=== PATIENT | female | born 2000 | race Caucasian/White ===

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

== ENCOUNTER 2024-02-24 12:54 | Emergency (ER) | payer OTHER ==
[2024-02-24 13:51] LABS: BASO % 0.5 % (0.0-1.0); EOS # 0.1 10^3/uL (0.0-0.5); EOS % 1.5 % (0.0-3.0); HEMATOCRIT 38.4 % (36.0-47.0); HEMOGLOBIN 12.8 g/dl (12.0-15.5); LYMPH # 1.9 10^3/uL (1.5-5.0); LYMPH % 22.6 % (24.0-44.0); MEAN CORPUSCULAR HGB CONC 33.3 g/dl (32.0-36.5); MEAN CORPUSCULAR VOLUME 90.1 fl (80.0-96.0); MONO # 0.6 10^3/uL (0.0-0.8); MONO % 6.7 % (2.0-8.0); NEUTROPHILS # 5.6 10^3/uL (1.5-8.5); NEUTROPHILS % 68.5 % (36.0-66.0); PLATELET COUNT, AUTOMATED 276 10^3/uL (150-450); RED BLOOD COUNT 4.26 10^6/uL (4.00-5.40); WHITE BLOOD COUNT 8.2 10^3/uL (4.0-10.0)
[2024-02-24 14:17] LABS: CK-MB VALUE MASS < 1.0 NG/ML (<3.6)
[2024-02-24 14:19] LABS: BLOOD UREA NITROGEN 13 MG/DL (9-23); CALCIUM LEVEL 9.9 MG/DL (8.5-10.1); CARBON DIOXIDE LEVEL 24 MMOL/L (20-31); CHLORIDE LEVEL 105 MMOL/L (98-107); CREATININE FOR GFR 0.67 MG/DL (0.55-1.30); GLOMERULAR FILTRATION RATE > 60.0 (>60); GLUCOSE, FASTING 82 MG/DL (60-100); POTASSIUM SERUM 4.6 MMOL/L (3.5-5.1); SODIUM LEVEL 138 MMOL/L (136-145)
[2024-02-24 14:20] LABS: CPK CREATINE PHOSPHOKINASE 61 U/L (34-145); HCG, SERUM QUALITATIVE NEGATIVE (NEGATIVE); MB/CK RELATIVE INDEX 1.63 (< OR =4)
[2024-02-24] MEDS ORDERED: ISOVUE-370 76% 100ML VIAL As Ordered ONE (16:52)
[2024-02-24] MEDS: ALBUTEROL SULFATE 2.5MG/0.5ML INH NEB SOLN NEB ONE (17:47)
[2024-02-24 17:48] LABS: CK-MB VALUE MASS < 1.0 NG/ML (<3.6)
[2024-02-24 17:49] LABS: CPK CREATINE PHOSPHOKINASE 53 U/L (34-145); MB/CK RELATIVE INDEX 1.88 (< OR =4)
[2024-02-24 17:52] LABS: FREE T4 1.12 NG/DL (0.89-1.76); THYROID STIMULATING HORMONE 1.875 uIU/ML (0.55-4.78)
[2024-02-24] MEDS ORDERED: VENTAER INH (19:04)
[2024-02-24] MEDS ORDERED: IBUP-1022 PO (19:04)
[2024-02-24 19:18] VITALS: BP 122/76; TEMP 98.4; O2SAT 98
== END 2024-02-24 19:44 | disposition home or self-care (01) ==
LOC: M ED 12:54
DX: R07.9 Chest pain, unspecified (principal); B34.9 Viral infection, unspecified; Z79.52 Long term (current) use of systemic steroids; Z79.1 Long term (current) use of non-steroidal anti-inflammatories (NSAID)
CPT/HCPCS: 36415; 71046; 71275; 80048; 82550; 82553; 84439; 84443; 84484; 84703; 85025; 87486; 87581; 87633; 87798; 93005; 94640; 99284; Q9967